=== PATIENT | male | born 1995 | race Caucasian/White ===

== ENCOUNTER 2018-05-06 21:42 | Emergency (ER) | payer OTHER ==
[2018-05-06 21:50] VITALS: BP 101/64
--- NOTE | 2018-05-06 22:04 | EDPHY ---
H & P Stated Complaint: FOREHEAD LAC/ RAN INTO A WALL Time Seen by Provider: 05/06/18 21:54 HPI/ROS: HPI: This is a 23-year-old male who presents with Chief Complaint: FOREHEAD LAC/ RAN INTO A WALL Location: Forehead Quality: Laceration Duration: Prior to arrival Signs and Symptoms: No LOC, No bleeding, no radiation, no numbness, no weakness , no tingling, no incontinence, no decreased range of motion, no swelling, + pain, no fever Timing: Acute Severity: [id number] Context: Patient is generally healthy, smokes marijuana daily, reports his tetanus is up-to-date, presents to the emergency department with complaints of accidentally hitting his forehead on the wall as he was getting into bed this evening. Reports that he felt immediate, constant, nonradiating pain. Initially felt some dizziness but that has since resolved. Denies LOC/neck pain /dizziness/nausea/vomiting/amnesia. Modifying Factors: He applied direct pressure to get the bleeding stopped. Comment: ROS: A comprehensive 10 system review of systems is otherwise negative aside from elements mentioned in the history of present illness. MEDICAL/SURGICAL/SOCIAL HISTORY: Medical history: Generally healthy. Does not take any regular medications. Surgical history: Denies Social history: Denies tobacco use. Smokes marijuana. CONSTITUTIONAL: Well-developed, well-nourished, young adult white male, awake and alert, no obvious distress HEENT: Atraumatic and normocephalic. NECK: 6 cm, superficial, vertical, laceration no active bleeding no midline tenderness, flexion 45 degrees, extension 45 degrees, right and left lateral flexion 45 degrees. No meningismus. Cardiovascular: Normal S1/S2, regular rate, regular rhythm, without murmur rub or gallop. EXTREMITIES: 2/2 pulses, strength 5/5, DIP/PIP/MCP flexion/extension intact with good light touch sensation. no deformities, no clubbing, no cyanosis or edema. NEUROLOGICAL: no focal neuro deficits. GCS 15. Light touch sensation intact. Cranial nerves 2-12 grossly intact. Speech clear. SKIN: Warm and dry, no erythema. no rash. Good capillary refill. Source: Patient Exam Limitations: No limitations - Personal History Current Tetanus Diphtheria and Acellular Pertussis (TDAP): Yes - Medical/Surgical History Hx Asthma: No Hx Chronic Respiratory Disease: No Hx Diabetes: No Hx Cardiac Disease: No Hx Renal Disease: No Hx Cirrhosis: No Hx Alcoholism: No Hx HIV/AIDS: No Hx Splenectomy or Spleen Trauma: No Other PMH: MJ USE - Social History Smoking Status: Never smoked Constitutional: Initial Vital Signs Temperature (C) 36.4 C 05/06/18 21:48 Heart Rate 60 05/06/18 21:48 Respiratory Rate 16 05/06/18 21:48 Blood Pressure 101/64 05/06/18 21:48 O2 Sat (%) 97 05/06/18 21:48 O2 Delivery Mode Room Air Allergies/Adverse Reactions: No Known Allergies Allergy (Unverified 05/06/18 21:47) Home Medications: Medication Instructions Recorded Sertraline HCl 05/06/18 Medical Decision Making Procedures: Procedure: Laceration repair. Verbal consent was obtained from the patient. The 6 cm, superficial, vertical laceration on the left side of forehead was anesthetized in the usual fashion using 6 mL of 1% lidocaine with epinephrine The wound was irrigated, draped and explored to its base with a gloved finger. There were no deep structures involved. No tendon injury was identified. The wound was repaired with #7, 5- 0 Prolene. Good hemostasis was achieved and patient tolerated procedure well. Steri-Strips applied. The procedure was performed by myself. ED Course/Re-evaluation: Vital signs reviewed and stable upon arrival. No LOC and no neurological deficits. Based on nexus protocol head CT imaging not indicated. Tetanus is up-to-date Laceration repaired. Given written and verbal wound care instructions No signs of neurovascular compromise/tenting of skin/compartment syndrome/ extremities and joints examined above and below area of concern and are neurovascularly intact/concussion This patient was seen under the supervision of my secondary supervising physician. I evaluated care for this patient with the attending. Discussed this patient with Dr. Moctezuma who did see the patient. Differential Diagnosis: Head injury including but not limited to concussion, skull fracture, intraparenchymal contusion, subarachnoid, subdural and epidural hematoma. Departure - Departure Disposition: Home, Routine, Self-Care Clinical Impression: Laceration of forehead without complication Qualifiers: Encounter type: initial encounter Qualified Code(s): S01.81XA - Laceration without foreign body of other part of head, initial encounter Condition: Good Instructions: Care For Your Stitches (ED), Laceration (ED), Head Injury (ED) Additional Instructions: Please do not participate in any contact sports or moderate and strenuous activity until all symptoms have resolved. Take Tylenol 650 mg every 4 hours and/or Ibuprofen 600 mg every 8 hours with food as needed for pain/headache. Consume a minimum of 8-10 glasses of water or electrolyte fluid replacement drinks that include Gatorade, Powerade, Pedialyte. You are to be closely monitored and observed for the 12 hr following initial injury time. Please follow-up with primary care provider in 5-7 days. If symptoms last longer than 1 week, please follow-up with Dr. Gomez in the concussion Clinic. Return to the ER immediately if you have progressive headaches, neurologic deficits, gait abnormality, visual disturbance, slurred speech, or any other symptom that concerns you. Keep the dressing dry and in place for 48 hours. After 48 hours, you may remove the dressing; wash the site daily with mild soap and water; then pat dry. Allow the Steri-Strips to fall off on their own in a few days. Wound Care Follow-Up: Removal of sutures in [5-7] days. Suture removal is complimentary in uncomplicated cases. Infection or abnormal findings would require reevaluation by the MD. In that case, you may be billed. Referrals: [facility],. [Clinic] - As per Instructions Rebecca Gomez MD [Medical Doctor] - As per Instructions
== END 2018-05-06 22:33 | disposition home or self-care (01) ==
PROC: 0HQ1XZZ Repair Face Skin, External Approach (ICD-10-PCS; principal; 2018-05-06)
DX: S01.81XA Laceration without foreign body of other part of head, initial encounter (principal); W22.8XXA Striking against or struck by other objects, initial encounter